=== PATIENT | female | born 1995 | race American Indian/Alaskan Native ===

== ENCOUNTER 2020-06-15 04:14 | Emergency (ER) | payer SELFPAY ==
--- NOTE | 2020-06-15 05:29 | XRay Report ---
LEFT KNEE 2 VIEWS INDICATION / CLINICAL INFORMATION: dislocation COMPARISON: None available. FINDINGS: BONES / JOINT(S): The patella is dislocated laterally and superiorly. No fracture is seen. SOFT TISSUES: No significant abnormality. ADDITIONAL FINDINGS: None. Signer Name: Tho Woodall MD Signed: 06/15/2020 5:25 AM Workstation Name: [id number]
--- NOTE | 2020-06-15 10:36 | Emergency Department Report ---
ED Lower Extremity HPI - General Chief Complaint: Extremity Injury, Lower Stated Complaint: LEFT KNEE DISLOCATION Time Seen by Provider: 06/15/20 10:13 Source: patient, EMS Mode of arrival: Wheelchair Limitations: Physical Limitation - History of Present Illness Initial Comments: CC: knee dislocated HPI: This is a 24 yo female with hx of recurrent patellar dislocations who presents with "dislocated knee". Patient has had recurrent lateral patellar dislocations since high school. Today, she noticed that her kneecap was superior not lateral. After splinting for several hours, patient is able to flex her knee with minimal discomfort. No other significant past medical hx. No hx of surgeries. No home medications. 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 MD Complaint: other (Patellar dislocation on the left) -: Sudden (Patient awakened this morning with left knee pain. She also had decreased range of motion.) Injury: Knee: Left Type of Injury: other (Superior patellar dislocation) Place: home Severity: moderate Severity scale (0 -10): 0 Improves With: immobilization, other (Fentanyl provided per EMS) Worsens With: movement Context: other (History of recurrent patellar dislocations) Other Symptoms: other (No other symptoms) Associated Symptoms: unable to bear weight. denies: snap/pop sensation, swelling, numbness, tingling - Related Data Allergies Allergy/AdvReac Type Severity Reaction Status Date / Time No Known Allergies Allergy Unverified 06/15/20 04:48 ED Review of Systems ROS: Stated complaint: LEFT KNEE DISLOCATION Other details as noted in HPI Constitutional: denies: fever, malaise Respiratory: denies: cough, shortness of breath Gastrointestinal: denies: abdominal pain, nausea, vomiting ED Past Medical Hx - Past Medical History Previous Medical History?: No - Surgical History Past Surgical History?: No - Social History Smoking Status: Never Smoker Substance Use Type: None ED Physical Exam - General Limitations: Physical Limitation General appearance: alert, in no apparent distress - Head Head exam: Present: atraumatic, normocephalic - Eye Eye exam: Present: normal appearance - ENT ENT exam: Present: mucous membranes moist - Neck Neck exam: Present: normal inspection, full ROM - Respiratory Respiratory exam: Absent: respiratory distress - Expanded Lower Extremity Exam Left Hip exam: Present: normal inspection, full ROM. Absent: tenderness, swelling Upper Leg exam: Present: normal inspection, full ROM. Absent: tenderness, swelling Knee exam: Present: normal inspection, full ROM, full knee extension (High riding patella which is similar to the right knee patient is able to flex and extend the knee with normal patellar tracking). Absent: tenderness, swelling, abrasion, laceration, ecchymosis, deformity, crepidus, erythema, effusion Lower Leg exam: Present: normal inspection, full ROM Ankle exam: Present: normal inspection, full ROM Foot/Toe exam: Present: normal inspection, full ROM Neuro vascular tendon exam: Present: no vascular compromise - Neurological Exam Neurological exam: Present: alert, oriented X3 - Psychiatric Psychiatric exam: Present: normal affect, normal mood - Skin Skin exam: Present: warm, dry, intact, normal color ED Course Vital Signs 06/15/20 06/15/20 04:45 09:56 Temperature 98.6 F Pulse Rate 65 78 Respiratory 18 16 Rate Blood Pressure 112/71 Blood Pressure 126/72 [Left] O2 Sat by Pulse 100 96 Oximetry ED Lower Extremity MDM - Radiology Data Radiology results: report reviewed, image reviewed Initial left knee radiographs viewed by me and read by radiologist as superior patella dislocation without fracture Radiology impression of second set of left knee radiographs reveal satisfactory reduction of the left patella without fracture or significant degenerative changes. Mild soft tissue swelling. I also personally reviewed the images. - Medical Decision Making This is a 24-year-old female who presents with superior patellar dislocation without direct trauma. The patella dislocation spontaneously self reduced with splinting in extension. Patient ambulated without difficulty. Knee is stable without laxity. She was referred to orthopedic surgeon. I strongly encouraged follow-up with orthopedic surgeon since this is a new type of dislocation which is actually not common. Critical care attestation.: If time is entered above; I have spent that time in minutes in the direct care of this critically ill patient, excluding procedure time. ED Disposition Clinical Impression: Dislocation of patella, left, closed Disposition: DC-01 TO HOME OR SELFCARE Is pt being admited?: No Does the pt Need Aspirin: No Condition: Stable Instructions: Patellar Dislocation (ED) Referrals: LORI MATHEWS MD [Staff Physician] - 3-5 Days Forms: Work/School Release Form(ED)
--- NOTE | 2020-06-15 10:59 | XRay Report ---
BILATERAL KNEES 2 VIEWS INDICATION / CLINICAL INFORMATION: patellar dislocation reduction with comparison COMPARISON: Earlier the same day. FINDINGS: BONES / JOINT(S): Satisfactory reduction of the left patella. No fracture or significant degenerative change. SOFT TISSUES: Mild left soft tissue swelling. ADDITIONAL FINDINGS: None. Signer Name: Shun Almodovar MD Signed: 06/15/2020 10:54 AM Workstation Name: [id number]
[2020-06-15 13:33] VITALS: BP 118/62
== END 2020-06-15 13:33 | disposition home or self-care (01) ==
LOC: ED 04:14
DX: S83.015A Lateral dislocation of left patella, initial encounter (principal); X58.XXXA Exposure to other specified factors, initial encounter; Y93.89 Activity, other specified; Y92.89 Other specified places as the place of occurrence of the external cause; Y99.8 Other external cause status